=== PATIENT | female | born 2000 | race African-American/Black ===

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

== ENCOUNTER 2022-07-21 13:48 | Emergency (ER) | payer MEDICAID ==
[~2022-07-21] VITALS: Ht 180.3 cm; Wt 122.0 kg
[~2022-07-21 13:48] MED LIST: PREN-99 PO
[2022-07-21 14:11] VITALS: BP 115/65
[2022-07-21] MEDS ORDERED: ONDANSETRON HCL 4MG/2ML INJ IV STA (14:37)
[2022-07-21] MEDS ORDERED: FAMOTIDINE 20MG/2ML VIAL IV STA (14:37)
[2022-07-21] MEDS ORDERED: SODIUM CHLORIDE 0.9% 1,000 ML IV ONE (14:45)
[2022-07-21 14:50] LABS: CLARITY URINE CLOUDY (CLEAR); COLOR URINE DARK YELLOW (YELLOW); KETONES URINE 2+ (NEGATIVE); LEUKOCYTE ESTERASE URINE 1+ (NEGATIVE); NITRITE URINE NEGATIVE (NEGATIVE); OCCULT BLOOD URINE TRACE (NEGATIVE); PROTEIN URINE 2+ (NEGATIVE); SPECIFIC GRAVITY URINE 1.041 (1.005-1.030)
[2022-07-21] MEDS ORDERED: MORPHINE SULFATE 4 MG/ML CPJ (NOT FOR IM USE) IV ONE (16:15)
[2022-07-21 17:07] LABS: BASOPHILS % 0.6 % (0.0-2.0); HEMATOCRIT. 40.2 % (36.0-48.0); HEMOGLOBIN. 13.6 g/dL (12.0-16.0); LYMPHOCYTES % 22.7 % (20.0-50.0); MEAN CORPUSCULAR HEMOGLOBIN 28.7 pg (28.0-32.0); MEAN CORPUSCULAR VOLUME 84.4 fL (81.0-99.0); MEAN PLATELET VOLUME 8.3 fl (7.4-10.4); MONOCYTES % 4.8 % (2.0-8.0); NEUTROPHILS % 71.9 % (40.0-76.0); PLATELET 261 x1000/uL (130-400); RED BLOOD CELL COUNT 4.76 mill/uL (4.2-5.4)
[2022-07-21 17:14] LABS: CHLORIDE 102 mEq/L (98-107)
[2022-07-21 17:15] LABS: INR 1.1; PROTHROMBIN TIME 11.4 sec (9.6-11.0)
[2022-07-21 17:22] LABS: HCG SCREEN NEGATIVE
[2022-07-21] MEDS ORDERED: POTASSIUM CHLORIDE 20MEQ TABLET SR PO SCH (18:15)
[2022-07-21] MEDS ORDERED: NITR-87 MT (18:52)
[2022-07-21] MEDS ORDERED: ONDA4TAB11 PO (18:52)
== END 2022-07-21 19:19 | disposition home or self-care (01) ==
LOC: ER 13:48
DX: N39.0 Urinary tract infection, site not specified (principal); R11.2 Nausea with vomiting, unspecified
CPT/HCPCS: 36415; 74176; 80053; 81003; 81025; 83690; 84703; 85025; 85610; 96361; 96374; 96375; 99285; J2270; J2405; J3490; J7030; Z7610

== ENCOUNTER 2023-03-15 14:37 | Emergency (ER) | payer MEDICAID ==
[~2023-03-15] VITALS: Ht 172.7 cm; Wt 127.0 kg
[~2023-03-15 14:37] MED LIST changes: +NITR-87 MT; +ONDA4TAB11 PO
[2023-03-15 14:39] VITALS: O2SAT 98
[2023-03-15] MEDS ORDERED: MORPHINE SULFATE 4 MG/ML CPJ (NOT FOR IM USE) IV STA (14:43)
[2023-03-15] MEDS ORDERED: ONDANSETRON HCL 4MG/2ML INJ IV STA (14:43)
[2023-03-15] MEDS ORDERED: SODIUM CHLORIDE 0.9% 1,000 ML IV ONE (14:45)
[2023-03-15 15:41] LABS: BASOPHILS % 0.4 % (0.0-2.0); EOSINOPHILS % 0.1 % (0.0-5.0); HEMATOCRIT. 35.4 % (36.0-48.0); HEMOGLOBIN. 11.5 g/dL (12.0-16.0); LYMPHOCYTES % 31.4 % (20.0-50.0); MEAN CORPUSCULAR HEMOGLOBIN 27.1 pg (28.0-32.0); MEAN CORPUSCULAR HGB CONC 32.6 g/dL (31.0-37.0); MEAN CORPUSCULAR VOLUME 83.3 fL (81.0-99.0); MEAN PLATELET VOLUME 8.9 fl (7.4-10.4); MONOCYTES % 8.2 % (2.0-8.0); NEUTROPHILS % 59.9 % (40.0-76.0); PLATELET 222 x1000/uL (130-400); RED BLOOD CELL COUNT 4.25 mill/uL (4.2-5.4); RED CELL DISTRIBUTION WIDTH 13.9 % (11.6-14.6); WHITE BLOOD COUNT 8.1 x1000/uL (4.5-11.0)
[2023-03-15 15:51] LABS: HCG SCREEN NEGATIVE
[2023-03-15 16:52] VITALS: TEMP 98.6
[2023-03-15] MEDS ORDERED: MORPHINE SULFATE 4 MG/ML CPJ (NOT FOR IM USE) IV ONE (17:00)
[2023-03-15 17:36] LABS: CHLORIDE 109 mEq/L (98-107); INDEX HEMOLYSI 1 (1-3); INDEX ICTERIC 1 (1-4); INDEX LIPEMIC 1 (1-3); POTASSIUM 3.3 mEq/L (3.5-5.1); SODIUM 141 mEq/L (136-145)
[2023-03-15 17:41] LABS: ALANINE AMINOTRANSFERASE 15 IU/L (13-61); ALBUMIN 3.7 g/dL (3.4-5.0); ASPARTATE AMINOTRANSFERASE 13 IU/L (15-37); CARBON DIOXIDE 21 mEq/L (21-32); CREATININE 0.8 mg/dL (0.6-1.3); GLUCOSE 98 mg/dL (70-105); UREA NITROGEN BLOOD 11 mg/dL (7-21)
[2023-03-15 17:43] LABS: BILIRUBIN TOTAL 0.5 mg/dL (0.1-1.0); PROTEIN TOTAL 7.4 g/dL (6.0-8.3)
[2023-03-15 18:00] VITALS: BP 122/68; PULSE 72; RESP 17
[2023-03-15] MEDS ORDERED: ONDA4TAB11 PO (18:05)
== END 2023-03-15 18:58 | disposition home or self-care (01) ==
LOC: ER 14:37
DX: R10.13 Epigastric pain (principal); R11.2 Nausea with vomiting, unspecified
CPT/HCPCS: 80053; 84703; 83690; 85025; 36415; 76705; 96361; 96374; 96375; 96376; 99285; J2405; J2270; J7030; Z7610 ×3

== ENCOUNTER 2023-08-27 02:54 | Emergency (ER) | payer MEDICAID ==
[~2023-08-27] VITALS: Ht 175.3 cm; Wt 109.0 kg
[2023-08-27 03:15] VITALS: TEMP 98.1; O2SAT 100
[2023-08-27 03:53] LABS: BASOPHILS % 0.7 % (0.0-2.0); EOSINOPHILS % 0.2 % (0.0-5.0); HEMATOCRIT. 37.2 % (36.0-48.0); HEMOGLOBIN. 12.4 g/dL (12.0-16.0); LYMPHOCYTES % 35.6 % (20.0-50.0); MEAN CORPUSCULAR HEMOGLOBIN 27.7 pg (28.0-32.0); MEAN CORPUSCULAR HGB CONC 33.2 g/dL (31.0-37.0); MEAN CORPUSCULAR VOLUME 83.5 fL (81.0-99.0); MONOCYTES % 6.5 % (2.0-8.0); PLATELET 296 x1000/uL (130-400); RED BLOOD CELL COUNT 4.45 mill/uL (4.2-5.4); RED CELL DISTRIBUTION WIDTH 14.3 % (11.6-14.6); WHITE BLOOD COUNT 10.7 x1000/uL (4.5-11.0)
[2023-08-27 04:11] LABS: ALANINE AMINOTRANSFERASE 10 IU/L (10-49); ALBUMIN 5.2 g/dL (3.2-4.8); ASPARTATE AMINOTRANSFERASE 15 IU/L (<34); BILIRUBIN TOTAL 0.8 mg/dL (0.1-1.0); CALCIUM 9.3 mg/dL (8.7-10.4); CARBON DIOXIDE 26 mEq/L (21-32); CHLORIDE 104 mEq/L (98-107); CREATININE 0.9 mg/dL (0.6-1.0); GLUCOSE 99 mg/dL (70-105); POTASSIUM 3.6 mEq/L (3.5-5.1); PROTEIN TOTAL 8.2 g/dL (6.0-8.3); SODIUM 137 mEq/L (136-145); UREA NITROGEN BLOOD 11 mg/dL (9-23)
[2023-08-27 04:32] LABS: CLARITY URINE CLOUDY (CLEAR); COLOR URINE DARK YELLOW (YELLOW); GLUCOSE URINE NEGATIVE (NEGATIVE); KETONES URINE 2+ (NEGATIVE); LEUKOCYTE ESTERASE URINE 1+ (NEGATIVE); NITRITE URINE NEGATIVE (NEGATIVE); OCCULT BLOOD URINE 1+ (NEGATIVE); PROTEIN URINE 1+ (NEGATIVE); SPECIFIC GRAVITY URINE 1.032 (1.005-1.030)
[2023-08-27 04:51] LABS: SQUAMOUS EPITHELIAL CELL URINE 1+ /lpf (RARE/1+)
[2023-08-27 04:55] LABS: BACTERIA URINE 1+
[2023-08-27 05:02] VITALS: BP 119/49; PULSE 69; RESP 18
[2023-08-27] MEDS: ONDANSETRON 4MG ODT PO ONE (05:02)
[2023-08-27] MEDS: MAGNESIUM/ALUMINUM HYDROXIDE/SIMETHICONE 30ML UDC PO ONE (05:02)
[2023-08-27] MEDS: KETOROLAC 60MG/2ML VIAL IM ONE (05:02)
[2023-08-27] MEDS ORDERED: ONDA4TAB50 MT (05:08)
[2023-08-27] MEDS ORDERED: FAMO-135 MT (05:08)
[2023-08-27] MEDS ORDERED: SULF1TAB48 MT (05:08)
== END 2023-08-27 05:32 | disposition home or self-care (01) ==
LOC: ER 03:29
DX: N39.0 Urinary tract infection, site not specified (principal); R10.13 Epigastric pain; Z79.899 Other long term (current) drug therapy
CPT/HCPCS: 80053; 81003; 81025; 83690; 85025; 36415; 96372; 99283; Q0162; J1885; Z7610

== ENCOUNTER 2024-12-05 15:48 | Emergency (ER) | payer MEDICAID ==
[~2024-12-05] VITALS: Ht 170.2 cm; Wt 105.0 kg
[~2024-12-05 15:48] MED LIST changes: +FAMO-135 MT; +ONDA-239 PO; -ONDA4TAB11 PO; +ONDA4TAB50 MT; +SULF1TAB48 MT
[2024-12-05 15:52] VITALS: O2SAT 98
[2024-12-05] MEDS ORDERED: PANTOPRAZOLE SODIUM 40 MG/VIAL IV STA (16:06)
[2024-12-05] MEDS: HALOPERIDOL LACTATE 5MG/ML VIAL IM ONE (16:15)
[2024-12-05] MEDS: ONDANSETRON HCL 4MG/2ML INJ IV STA (16:25)
[2024-12-05 16:26] LABS: BASOPHILS % 0.4 % (0.0-2.0); EOSINOPHILS % 1.4 % (0.0-5.0); HEMATOCRIT. 36.1 % (36.0-48.0); HEMOGLOBIN. 11.8 g/dL (12.0-16.0); LYMPHOCYTES % 16.1 % (20.0-50.0); MEAN PLATELET VOLUME 8.2 fl (7.4-10.4); MONOCYTES % 3.9 % (2.0-8.0); NEUTROPHILS % 78.2 % (40.0-76.0); PLATELET 247 x1000/uL (130-400); RED BLOOD CELL COUNT 4.34 mill/uL (4.2-5.4); RED CELL DISTRIBUTION WIDTH 13.4 % (11.6-14.6)
[2024-12-05] MEDS: SODIUM CHLORIDE 0.9% 1,000 ML IV ONE (16:26)
[2024-12-05 16:41] LABS: INR 1.1
[2024-12-05 16:44] LABS: CREATININE 0.9 mg/dL (0.6-1.0); ETHANOL BLOOD < 10 mg/dL (<10); UREA NITROGEN BLOOD 10 mg/dL (9-23)
[2024-12-05 16:46] LABS: ASPARTATE AMINOTRANSFERASE 13 IU/L (<34); BILIRUBIN DIRECT 0.2 mg/dL (<=3.0); BILIRUBIN TOTAL 0.8 mg/dL (0.1-1.0); PROTEIN TOTAL 7.5 g/dL (6.0-8.3)
[2024-12-05 17:34] LABS: CLARITY URINE CLOUDY (CLEAR); COLOR URINE DARK YELLOW (YELLOW); GLUCOSE URINE NEGATIVE (NEGATIVE); KETONES URINE 4+ (NEGATIVE); LEUKOCYTE ESTERASE URINE TRACE (NEGATIVE); NITRITE URINE NEGATIVE (NEGATIVE); OCCULT BLOOD URINE 2+ (NEGATIVE); PH URINE 6.5 (4.5-8.0); PROTEIN URINE 2+ (NEGATIVE); SPECIFIC GRAVITY URINE 1.034 (1.005-1.030); UROBILINOGEN URINE 1.0 E.U./dL (0.2-1.0)
[2024-12-05] MEDS: DIPHENHYDRAMINE 50MG/ML VIAL IV ONE (17:45)
[2024-12-05 17:48] LABS: *AMPHETAMINES SCREEN URINE NEGATIVE (NEGATIVE); *BENZODIAZEPINES SCREEN URINE NEGATIVE (NEGATIVE)
[2024-12-05 17:49] LABS: *BARBITURATES SCREEN URINE NEGATIVE (NEGATIVE); *COCAINE SCREEN URINE NEGATIVE (NEGATIVE); CANNABINOID URINE SCREEN PRESUMPTIVE POSITIVE (NEGATIVE); ECSTASY MDMA SCREEN URINE NEGATIVE (NEGATIVE); METHADONE URINE SCREEN NEGATIVE (NEGATIVE); OPIATES URINE SCREEN NEGATIVE (NEGATIVE); PHENCYCLIDINE URINE SCREEN NEGATIVE (NEGATIVE)
[2024-12-05 17:50] LABS: BACTERIA URINE 2+; SQUAMOUS EPITHELIAL CELL URINE 2+ /lpf (RARE/1+)
[2024-12-05 17:51] LABS: WBC URINE 0-2 /hpf (0-2)
[2024-12-05] MEDS: KCL 10MEQ/50ML PREMIX 50 ML IV ONE (17:54)
[2024-12-05] MEDS: PANTOPRAZOLE SODIUM 40 MG/VIAL IV SCH (17:59)
[2024-12-05 20:00] VITALS: BP 139/73; PULSE 74; RESP 20; O2SAT 98
== END 2024-12-05 20:04 | disposition home or self-care (01) ==
LOC: ER 15:48
DX: R11.2 Nausea with vomiting, unspecified (principal); Z88.6 Allergy status to analgesic agent; Z79.899 Other long term (current) drug therapy
CPT/HCPCS: 80076; 80305; 80048; 81003; 80320; 83690; 85025; 85610; 36415; 96361; 96365; 96372; 96375; 99284; J1200; J1630; J2405; J2470; J3480; J7030; G0480

== ENCOUNTER 2025-02-21 08:33 | Emergency (ER) | payer MEDICAID ==
[~2025-02-21] VITALS: Ht 180.3 cm; Wt 115.0 kg
[2025-02-21 08:43] VITALS: O2SAT 100
[2025-02-21 09:16] LABS: BASOPHILS % 0.1 % (0.0-2.0); EOSINOPHILS % 0.0 % (0.0-5.0); HEMATOCRIT. 38.0 % (36.0-48.0); HEMOGLOBIN. 12.0 g/dL (12.0-16.0); LYMPHOCYTES % 13.5 % (20.0-50.0); MEAN PLATELET VOLUME 10.1 fl (7.4-10.4); MONOCYTES % 3.9 % (2.0-8.0); NEUTROPHILS % 82.5 % (40.0-76.0); PLATELET 182 x1000/uL (130-400); RED BLOOD CELL COUNT 4.33 mill/uL (4.2-5.4); RED CELL DISTRIBUTION WIDTH 14.9 % (11.6-14.6)
[2025-02-21 09:33] LABS: CREATININE 0.8 mg/dL (0.6-1.0); UREA NITROGEN BLOOD 10 mg/dL (9-23)
[2025-02-21 09:35] LABS: ASPARTATE AMINOTRANSFERASE 15 IU/L (<34); BILIRUBIN DIRECT 0.2 mg/dL (<=3.0)
[2025-02-21 09:36] LABS: BILIRUBIN TOTAL 0.7 mg/dL (0.1-1.0); PROTEIN TOTAL 8.0 g/dL (6.0-8.3)
[2025-02-21 09:49] LABS: CLARITY URINE CLOUDY (CLEAR); COLOR URINE YELLOW (YELLOW); GLUCOSE URINE NEGATIVE (NEGATIVE); KETONES URINE 3+ (NEGATIVE); LEUKOCYTE ESTERASE URINE NEGATIVE (NEGATIVE); NITRITE URINE NEGATIVE (NEGATIVE); OCCULT BLOOD URINE 2+ (NEGATIVE); PH URINE 6.0 (4.5-8.0); PROTEIN URINE 2+ (NEGATIVE); SPECIFIC GRAVITY URINE 1.032 (1.005-1.030); UROBILINOGEN URINE 0.2 E.U./dL (0.2-1.0)
[2025-02-21 10:02] LABS: BACTERIA URINE TRACE; RBC URINE 25-50 /hpf (0-2); SQUAMOUS EPITHELIAL CELL URINE 3+ /lpf (RARE/1+); WBC URINE 0-2 /hpf (0-2); YEAST URINE NONE SEEN
[2025-02-21] MEDS ORDERED: DOXY100T2 MT (10:24)
[2025-02-21] MEDS ORDERED: ONDA-239 PO (10:25)
[2025-02-21] MEDS: LIDOCAINE HCL 1% 20ML VIAL INFIL ONE (10:35)
[2025-02-21] MEDS: CEFTRIAXONE SODIUM 500MG VIAL IM ONE (10:35)
[2025-02-21 10:45] VITALS: BP 131/60; PULSE 75; RESP 16; TEMP 37.3; O2SAT 100
== END 2025-02-21 11:00 | disposition home or self-care (01) ==
LOC: ER 08:33
DX: R30.0 Dysuria (principal); F12.90 Cannabis use, unspecified, uncomplicated; Z79.899 Other long term (current) drug therapy; Z88.6 Allergy status to analgesic agent
CPT/HCPCS: 99283; 80076; 80048; 81003; 83690; 85025; 36415; 96372; J0696; J2003

== ENCOUNTER 2025-02-23 17:30 | Emergency (ER) | payer MEDICAID ==
[~2025-02-23] VITALS: Ht 180.3 cm; Wt 100.0 kg
[~2025-02-23 17:30] MED LIST changes: +DOXY100T2 MT
[2025-02-23 17:39] VITALS: BP 150/82; PULSE 62; RESP 18; TEMP 36.6; O2SAT 98
== END 2025-02-23 21:00 | disposition left against medical advice (07) ==
LOC: ER 17:30
DX: R10.13 Epigastric pain (principal); Z53.21 Procedure and treatment not carried out due to patient leaving prior to being seen by health care provider